=== PATIENT | female | born 2000 | race Caucasian/White ===

== ENCOUNTER 2018-09-03 19:43 | Emergency (ER) | payer OTHER ==
[~2018-09-03] VITALS: Ht 170.2 cm; Wt 85.0 kg
[~2018-09-03 19:43] MED LIST: ADDE10 PO; DSS100 PO; FERR-89 PO; IBUP-2070 PO; LEVO50 PO
[2018-09-03] MEDS ORDERED: ALBU0.212 IH (20:07)
[2018-09-03 21:10] VITALS: BP 132/82
== END 2018-09-03 21:28 | disposition home or self-care (01) ==
LOC: EMS 19:44
DX: J32.9 Chronic sinusitis, unspecified (principal); R03.0 Elevated blood-pressure reading, without diagnosis of hypertension; J45.909 Unspecified asthma, uncomplicated; Z88.0 Allergy status to penicillin